=== PATIENT | female | born 1990 | race Two or more races ===

== ENCOUNTER 2021-04-05 08:54 | Emergency (ER) | payer MEDICAID, OTHER ==
[~2021-04-05] VITALS: Ht 157.5 cm; Wt 67.1 kg
[2021-04-05 08:54] VITALS: BP 126/81
== END 2021-04-05 17:53 | disposition home or self-care (01) ==
LOC: ER 08:54
DX: S16.1XXA Strain of muscle, fascia and tendon at neck level, initial encounter (principal); S29.012A Strain of muscle and tendon of back wall of thorax, initial encounter; J45.909 Unspecified asthma, uncomplicated; V49.49XA Driver injured in collision with other motor vehicles in traffic accident, initial encounter; Y93.89 Activity, other specified; Y92.488 Other paved roadways as the place of occurrence of the external cause; Y99.8 Other external cause status
CPT/HCPCS: 72070; 72125